=== PATIENT | male | born 2000 | race Two or more races ===

== ENCOUNTER 2021-12-25 23:21 | Emergency (ER) | payer SELFPAY ==
[~2021-12-25] VITALS: Ht 172.7 cm; Wt 104.7 kg
[2021-12-25 23:23] VITALS: BP 137/75
== END 2021-12-26 02:22 | disposition left against medical advice (07) ==
LOC: M ED 23:21
DX: Z53.21 Procedure and treatment not carried out due to patient leaving prior to being seen by health care provider (principal)